=== PATIENT | male | born 1955 | race Caucasian/White ===

== ENCOUNTER 2022-08-06 10:41 | Inpatient (IN) ==
[2022-08-06] MEDS ORDERED: 0.9 % Sodium Chloride 1,000 ML IVC ONE (11:16)
[2022-08-06 11:58] LABS: Basophils % 0.2 %; Eosinophils # 0.1 K/mcL (0.0-0.6); Eosinophils % 1.3 %; Hematocrit 45.1 % (37.5-50.1); Immature Granulocytes % 0.4 % (0-4); Lymphocytes # 1.2 K/mcL (0.6-4.6); Lymphocytes % 11.2 %; Mean Corpuscular HGB Conc 33.3 g/dL (31.6-35.5); Mean Corpuscular Hemoglobin 30.8 pg (28.0-33.3); Mean Corpuscular Volume 92.6 fL (83.0-100.0); Mean Platelet Volume 10.6 fL (9.4-12.4); Monocytes # 0.7 K/mcL (0.0-1.3); Neutrophils # 8.7 K/mcL (1.6-8.9); Platelet Count 214 K/mcL (140-400); Red Blood Count 4.87 M/mcL (4.19-5.50); Segmented Neutrophils % 80.9 %
[2022-08-06 11:59] LABS: White Blood Count 10.8 K/mcL (4.3-11.1)
[2022-08-06 12:01] LABS: Bilirubin,Urine Negative (Negative); Blood,Urine Negative (Negative); Clarity,Urine Clear (Clear); Color,Urine Light-Yellow (Yellow); Glucose,Urine (UA) Normal (Normal); Ketones,Urine Negative (Negative); Leukocyte Esterase,Urine Negative (Negative); Nitrite,Urine Negative (Negative); Protein,Urine Negative (Neg-Trace); Specific Gravity,Urine 1.011 (1.010-1.025); Urobilinogen,Urine Normal (Normal)
[2022-08-06 12:09] LABS: Amphetamine Screen,Urine Positive ng/mL (Cutoff=1000); Barbiturate Screen,Urine Negative ng/mL (Cutoff=200); Benzodiazepines Screen,Urine Negative ng/mL (Cutoff=200); Cannabinoid Screen,Urine Negative ng/mL (Cutoff = 50); Cocaine Screen,Urine Negative ng/mL (Cutoff= 300); Opiate Screen,Urine Positive ng/mL (Cutoff=300); Phencyclidine Screen,Urine Negative ng/mL (Cutoff=25)
[2022-08-06 12:13] LABS: Alanine Aminotransferase 31 Units/L (7-52); Albumin 4.3 g/dL (3.5-5.7); Albumin/Globulin Ratio 1.4 (1.1-2.2); Alkaline Phosphatase 111 Units/L (34-104); Aspartate Amino Transferase 28 Units/L (13-39); BUN/Creatinine Ratio 12 (6-26); Bilirubin,Direct 0.2 mg/dL (0.0-0.2); Bilirubin,Indirect 0.9 mg/dL (0.0-1.0); Bilirubin,Total 1.1 mg/dL (0.3-1.0); Blood Urea Nitrogen 12 mg/dL (8-23); Calcium 9.2 mg/dL (8.6-10.3); Carbon Dioxide 32 mEq/L (23-29); Chloride 102 mEq/L (98-107); Creatine Kinase 354 Units/L (30-223); Ethanol < 10 mg/dL (Less than 10); Globulin 3.1 g/dL (2.4-3.5); Glucose 104 mg/dL (70-105); Osmolality,Calculated 292 (280-300); Potassium 3.4 mEq/L (3.5-5.1); Sodium 141 mEq/L (136-145); Total Protein 7.4 g/dL (6.4-8.9)
[2022-08-06 12:14] LABS: Troponin I < 0.03 ng/mL (< 0.04)
[2022-08-06] MEDS ORDERED: *HR* HYDROcodone/Acet 5/325 mg TABLET PO PRN (14:09)
[2022-08-06] MEDS ORDERED: Acetaminophen 325 MG TABLET PO PRN (14:09)
[2022-08-06] MEDS ORDERED: Naloxone 0.4 MG/ML INJ IVP PRN (14:09)
[2022-08-06] MEDS ORDERED: Ondansetron 4 MG/2 ML VIAL IVP PRN (14:09)
[2022-08-06 16:11] LABS: INR 1.1; Prothrombin Time 12.4 Seconds (9.4-12.1)
[2022-08-06 16:14] LABS: Activated Partial Thrombo Time 31.8 Seconds (26.0-36.0)
[2022-08-06] MEDS: Vilazodone Hcl [Viibryd] 40 MG Tablet PO SCH (21:12)
[2022-08-06] MEDS: Doxycycline 100 MG CAPSULE PO SCH (21:12)
[2022-08-06] MEDS: QUEtiapine Fumarate 25 MG TABLET PO SCH (21:12)
[2022-08-06] MEDS: *HR* Heparin 5,000 UNIT/ML VIAL SQ SCH (21:16)
[2022-08-06] MEDS: *HR* LORazepam 0.5 MG TABLET PO PRN (21:17)
[2022-08-07] MEDS: *HR* Heparin 5,000 UNIT/ML VIAL SQ SCH (02:00)
[2022-08-07] MEDS: *HR* OxyCODONE Immed Rel 5 MG TABLET PO PRN ×2 (03:35→16:20)
[2022-08-07 06:48] LABS: Hematocrit 42.4 % (37.5-50.1); Hemoglobin 13.9 g/dL (12.9-16.9); Mean Corpuscular HGB Conc 32.8 g/dL (31.6-35.5); Mean Corpuscular Hemoglobin 29.8 pg (28.0-33.3); Mean Platelet Volume 10.6 fL (9.4-12.4); Platelet Count 214 K/mcL (140-400); Red Blood Count 4.66 M/mcL (4.19-5.50); White Blood Count 7.2 K/mcL (4.3-11.1)
[2022-08-07 07:54] LABS: BUN/Creatinine Ratio 9 (6-26); Blood Urea Nitrogen 8 mg/dL (8-23); Calcium 8.3 mg/dL (8.6-10.3); Carbon Dioxide 29 mEq/L (23-29); Chloride 103 mEq/L (98-107); Glucose 105 mg/dL (70-105); Osmolality,Calculated 287 (280-300); Potassium 3.4 mEq/L (3.5-5.1); Sodium 139 mEq/L (136-145); Troponin I 0.05 ng/mL (< 0.04)
[2022-08-07] MEDS ORDERED: RIVASTIGMINE 13.3 MG TP SCH (09:00)
[2022-08-07] MEDS: *HR* LORazepam 0.5 MG TABLET PO PRN (15:04)
[2022-08-07] MEDS: Doxycycline 100 MG CAPSULE PO SCH (21:28)
[2022-08-07] MEDS: QUEtiapine Fumarate 25 MG TABLET PO SCH (21:28)
[2022-08-07] MEDS: Vilazodone Hcl [Viibryd] 40 MG Tablet PO SCH (21:28)
[2022-08-07] MEDS: RIVASTIGMINE 13.3 MG TP SCH (22:55)
[2022-08-08] MEDS: RIVASTIGMINE 13.3 MG TP SCH (08:22)
[2022-08-08] MEDS ORDERED: DEXTROAMPHETAMINE PO SCH (09:00)
[2022-08-08] MEDS ORDERED: Cholecalciferol (D-3) 1,000 UNIT (25MCG) TABLET PO SCH (09:00)
[2022-08-08] MEDS ORDERED: AMPHETAMINE PO SCH (09:00)
[2022-08-08] MEDS ORDERED: Loratadine 10 MG TABLET PO SCH (09:00)
[2022-08-08] MEDS ORDERED: ADDERALL 30 MG PO SCH (09:00)
[2022-08-08 12:04] VITALS: PULSE 90
[2022-08-08] MEDS: *HR* LORazepam 0.5 MG TABLET PO PRN (13:03)
[2022-08-08 17:23] VITALS: BP 136/99; TEMP 97.9; O2SAT 91
== END 2022-08-08 19:35 | disposition home health service (06) | DRG 563 ==
LOC: EMEROOARM 10:41 → 3ANU 10:41 → 4WAOSI 13:43
PROVIDERS: ADMIT General Practice; ATTEND General Practice